=== PATIENT | female | born 1940 | race Caucasian/White ===

== ENCOUNTER 2019-06-15 09:09 | Emergency (ER) | payer MEDICARE, SELFPAY ==
[2019-06-15 09:16] VITALS: BP 182/91; PULSE 73; RESP 18; TEMP 36.6; O2SAT 95; BMI 32.1
--- NOTE | 2019-06-15 09:45 | XRR_ITS ---
PROCEDURE INFORMATION: Exam: XR Cervical Spine, 2 or 3 Views Exam date and time: 06/15/2019 9:46 AM Age: 79 years old Clinical indication: Injury or trauma; Fall; Initial encounter; Blunt trauma; Additional info: Fall neck pain TECHNIQUE: Imaging protocol: XR of the cervical spine, 2 or 3 views. COMPARISON: No relevant prior studies available. FINDINGS: Vertebrae: Alignment is normal. posterior vertebral line and the spinal laminar line normal odontoid process normal no fracture. Degenerative disc disease C4-C5, C5-C6, C6-C7 and C7-T1. Soft tissues: Normal. XR/XR cervical spine 3V* [id number] IMPRESSION: 1. No fracture. 2. Degenerative disc disease C4-C5, C5-C6, C6-C7 and C7-T1.
--- NOTE | 2019-06-15 09:46 | ED_ITS ---
HPI - Head Injury General: Chief complaint: Head Injury Stated complaint: head lac Time Seen by Provider: 06/15/19 09:20 History of Present Illness: HPI Narrative: 79-year-old female presents emergency room after falling. She was at home moving some objects with her she stumbled and fell backwards and hit her head on the edge of a tractor bucket. She has a small hematoma there but no laceration there is a abrasion noted upper part of the occiput just to the left of the midline and is not actively bleeding. She denies any other injury there is no loss of consciousness she has some mild neck discomfort she was immediately ambulatory after she had no vomiting. She has a mild headache. She denies any other recent illness. She is unsure of her last tetanus shot. MD Complaint: head injury Onset (ago): hour(s) Mechanism of Injury: fall Place: home Loss of Consciousness: no Location of injury: occipital Radiation: none Other Injuries: none Associated symptoms: Reports no associated symptoms; Deny nausea or vomiting Review of Systems Const: Denies: fever, chills, body aches, change in appetite, fatigue or malaise ENMT: Denies: throat pain, ear pain, nasal discharge or nasal congestion Card: Denies: chest pain, edema, shortness of breath on exertion or shortness of breath when lying down Resp: Denies: shortness of breath, productive cough or non-productive cough GI: Denies: abdominal pain, nausea, vomiting, vomiting blood, coffee grounds in vomit, diarrhea, constipation, bloating, blood in stool or black tarry stool : Denies: flank pain, difficulty urinating, painful urination, urinary frequency or urinary urgency Skin/Breast: Denies: rash or itching Neuro: Reports: headache (Present after the fall) [facility], [facility] ED PFSH: Social History Smoking and tobacco status: former smoker Physical Exam Const: COMMON NORMALS: no apparent distress GENERAL APPEARANCE: cooperative and comfortable ORIENTATION/CONSCIOUSNESS: Yes awake, Yes oriented to person, Yes oriented to place and Yes oriented to time HENMT: COMMON NORMALS: normocephalic, head/scalp atraumatic, hearing grossly normal bilaterally, external ears normal, EAC's normal, TM's normal bilaterally, nasal mucous membranes and turbinates normal, moist oral mucous membranes and oropharynx normal HEAD & SCALP: normocephalic and atraumatic NOSE: nasal mucous membranes and turbinates normal EXTERNAL EAR: Yes external ears normal EXTERNAL AUDITORY CANAL: EAC's normal TYMPANIC MEMBRANE: TM's normal bila terally OTHER: Scalp hematoma with a small overlying abrasion no active bleeding Eye: COMMON NORMALS: PERRL, EOMs intact bilaterally, conjunctivae normal and no scleral icterus CONJUNCTIVA: Yes conjunctivae normal PUPIL: Yes PERRL Neck/C-Spine: COMMON NORMALS: full ROM, no lymphadenopathy, supple and no JVD Lymph: LYMPHATIC: no lymphadenopathy noted and no lymphedema noted Resp: COMMON NORMALS: normal respiratory effort, no retractions, no use of accessory muscles and clear to auscultation bilaterally AUSCULTATION: clear to auscultation bilaterally Cardio: COMMON NORMALS: no JVD, regular rate, regular rhythm and no murmurs RATE: regular rate RHYTHM: regular rhythm GI: COMMON NORMALS: soft to palpation and no hepatosplenomegaly AUSCULTATION: Yes normoactive bowel sounds PALPATION: Yes soft, No tender, No guarding and Yes no hepatosplenomegaly Extremity: COMMON NORMALS: normal to inspection, normal capillary refill, no clubbing, cyanosis or edema, no calf tenderness and no pedal edema Neuro: SENSORIUM/ORIENTATION: Yes oriented to person, Yes oriented to place and Yes oriented to time Skin: COMMON NORMALS: no rashes or lesions noted GENERAL SKIN EXAM: no rashes or lesions noted Course Vital Signs: Vital signs: Vital Signs Temperature 97.8 F 06/15/19 09:16 Pulse Rate 71 06/15/19 12:02 Respiratory Rate 18 06/15/19 12:02 Blood Pressure 178/89 06/15/19 12:02 Pulse Oximetry 95 06/15/19 12:02 MDM - Head Injury MDM Narrative: Medical decision making narrative: Alert and oriented with no evidence of any deficits initially a plain film done which is question of some slight malalignment on the C-spine it was difficult to tell because of arthritic changes CT of the cervical spine was negative for fracture. She has an abrasion on the upper occiput but does not require any sutures wound care instructions given. Discussed that she is likely have very sore neck the next few days can use anti-inflammatory as needed follow-up as needed return if has worsening problems. Discharge Plan Discharge Patient Disposition: Home, Self-Care Clinical Impression: Closed head injury, Cervicalgia Condition: Stable Prescriptions: New diclofenac sodium 75 mg tablet,delayed release (DR/EC) 75 mg PO Q12H PRN (Reason: pain) Qty: 20 RF: 0 No Action clonidine HCl 0.1 mg tablet 0.1 mg PO BID RF: 0 atorvastatin 10 mg tablet 10 mg PO BEDTIME RF: 0 metoprolol succinate 50 mg tablet extended release 24 hr 50 mg PO DAILY RF: 0 amlodipine 10 mg tablet 10 mg PO DAILY RF: 0 gabapentin 300 mg capsule See Rx Instructions .ROUTE .COMPLEX RF: 0 diazepam 5 mg tablet 2.5 mg PO BID PRN (Reason: unknown) RF: 0 Advair Diskus See Rx Instructions .ROUTE .COMPLEX RF: 0 Aleve 220 mg Tablet 220 mg PO BID RF: 0 PreserVision AREDS-2 [id number] cy-[id number]-[id number]-mg Capsule 1 tab PO BID RF: 0 Move Easy For Joints 1 tab PO DAILY RF: 0 Discharge Orders: Discharge Order (Routine); Ordered 06/15/19 Ordered By: Earl Flower Discharge Diet: Usual diet Discharge Activity: Increase activity as tolerated Activity Restrictions/Additional Instructions: Follow-up with your primary care provider early next week. Discharge Date/Time: 06/15/19 12:06 Coding Level of Care Code ED Bonding Machine Setter for Gilberto Fwaugustin Exam Comprehensive
[2019-06-15] MEDS: tetanus-dipt-pertussis 0.5 mL SDV IM (09:54)
--- NOTE | 2019-06-15 10:22 | CTR_ITS ---
PROCEDURE INFORMATION: Exam: CT Cervical Spine Without Contrast Exam date and time: 06/15/2019 10:30 AM Age: 79 years old Clinical indication: Pain and injury or trauma; Initial encounter; Blunt trauma; Patient HX: C/O neck pain after backwards fall TECHNIQUE: Imaging protocol: Computed tomography images of the cervical spine without contrast. Total DLP: 391.14 mGy-cm Radiation optimization: All CT scans at this facility use at least one of these dose optimization techniques: automated exposure control; mA and/or kV adjustment per patient size (includes targeted exams where dose is matched to clinical indication); or iterative reconstruction. COMPARISON: CR (NECK, ) 06/15/2019 10:00 AM FINDINGS: Vertebrae: alignment is normal. posterior vertebral line and the spinal laminar line normal odontoid process normal no fracture Discs/Spinal canal/Neural foramina: Severe degenerative disc disease. Soft tissues: Unremarkable. Thyroid: Large nodule right lobe of the thyroid of approximately 2.7 cm Lungs: Apical fibrosis bilaterally CT/CT cervical spin wo con* [id number] IMPRESSION: No fracture. COMMENTS: Consistent with the [employer]'s Incidental Findings Committee white paper (J Am Ines Radiol 2015): In patients aged 35 years and older with an incidental thyroid nodule equal to or greater than 1.[address], MRI or extrathyroidal US, further evaluation with dedicated thyroid US is recommended for patients with normal life expectancy and without comorbidities. For smaller nodules without suspicious features, no further evaluation or follow up is recommended. Radiation Dose CTDIVOL = (mGy): DLP = 391.14 (mGy-cm)
--- NOTE | 2019-06-15 11:37 | PC.NURSE ---
patient resting quietly waiting for ct to be read
[2019-06-15 12:02] VITALS: BP 178/89; PULSE 71; RESP 18; O2SAT 95
== END 2019-06-15 12:06 | disposition home or self-care (01) ==
PROVIDERS: Emergency Provider Family Medicine
DX: S09.8XXA Other specified injuries of head, initial encounter (principal); M54.2 Cervicalgia; Z87.891 Personal history of nicotine dependence; W01.0XXA Fall on same level from slipping, tripping and stumbling without subsequent striking against object, initial encounter; Z23 Encounter for immunization
CPT/HCPCS: 12345; 72040; 72125; 90471; 90715; 99281; 99283

== ENCOUNTER 2020-12-01 12:09 | Emergency (ER) | payer MEDICARE, BC, SELFPAY ==
[2020-12-01 12:31] VITALS: BP 150/86; PULSE 65; RESP 16; TEMP 36.7; O2SAT 16
--- NOTE | 2020-12-01 12:36 | CT_ITS ---
WS: [id number] CT CERVICAL SPINE HISTORY: fall/pain TECHNIQUE: Contiguous 2.5 mm axial imaging performed through the entire cervical spine. Sagittal and coronal reformats also performed. All CT scans at [facility] use at least one of these dose o ptimization techniques: automated exposure control; mA and/or kV adjustment per patient size (include s targeted exams where dose is matched to clinical indication); or iterative reconstruction. DLP: 484.11 mGy.cm COMPARISON: 06/15/2019 Posterior cervical alignment is normal. Disc space narrowing and desiccation is moderate at C4-5, C5- 6 and C6-7. Facet joints are narrowed throughout the cervical spine. Lateral masses of C1 and C2 are aligned. Odontoid is intact. Craniocervical junction is normal. RIGHT apical fibrosis or mass measures 2.7 x 1.1 cm. RIGHT measures 2.[address]/CT cervical spin wo con* [id number] IMPRESSION: 1. No acute cervical spine fracture. 2. Fibrosis versus early neoplasm at the RIGHT lung apex. Recommend follow-up chest CT in 2-3 months to confirm stability. 3. RIGHT thyroid nodule similar to the prior CT from 06/15/2019.
--- NOTE | 2020-12-01 12:36 | CT_ITS ---
WS: [id number] CT HEAD NONCONTRAST HISTORY: trauma/fall/laceration TECHNIQUE: Contiguous axial imaging performed through the brain in 2.5 mm imaging. Bone and soft tiss ue windows. Sagittal and coronal reformats reviewed. All CT scans at [facility] use at least one of these dose optimization techniques: automated exposure control; mA and/or kV adjustment per pa tient size (includes targeted exams where dose is matched to clinical indication); or iterative recon struction. DLP: 820.93 mGy.cm COMPARISON: None available. 4 mm area of increased density along the LEFT parafalcine above the lateral ventricles. No associated midline shift. No mass effect no additional areas of increased density within the brain. Mild atrophy and mild chronic microvascular ischemic disease. Ventricles: Normal size with no hydrocephalus. Paranasal sinuses: As visualized are clear. Mastoid air cells: Well pneumatized. Calvarium and scalp: No fracture. Small contusion LEFT frontal vertex. CT/CT head wo con* [id number] IMPRESSION: 1. 4 mm hyperdense focus LEFT parafalcine supraventricular region. Very suspic ious for tiny acute focus of subdural hemorrhage. 2. Mild atrophy and mild chronic ischemic disease. 3. No fracture. Notified LAUREN Khan at 12/01/2020 2:13 PM.
--- NOTE | 2020-12-01 14:51 | ED_ITS ---
HPI - Fall General: Chief Complaint: Fall Stated Complaint: Laceration to Head from fall Time Seen by Provider: 12/01/20 14:25 History of Present Illness: HPI Narrative: 72-year-old female presents to the emergency room with complaint of a laceration to her head from a fall. She stumbled at home fell down some stairs and hit the crown of her head against a air compressor. She had no loss of consciousness. CTA head and neck were ordered by PA while in the waiting room. Head CT shows a small subdural hematoma CT of the neck was negative. Patient denies any nausea vomiting or vision changes. She does have a bit of a headache. Her tetanus is up-to-date. MD complaint: fall Onset (ago): minute(s) Fall from: standing Fall witnessed: no Place fall occurred: home Loss of consciousness: None Prolonged down time: no Symptoms prior to fall: none Context: tripped/slipped Location of injury: head and neck Associated symptoms-after fall: Denies abdominal pain, chest pain, confusion, difficulty walking, headache(s), hematuria, lightheadedness, neck pain, numbness, short of breath, vertigo or weakness Review of Systems Const: Denies: fever(s), chills, body aches, change in appetite, fatigue or malaise ENMT: Denies: throat pain, ear or mastoid pain, nasal discharge or nasal congestion Card: Denies: chest pain or lightheadedness Resp: Denies: dyspnea, productive cough or non-productive cough GI: Denies: abdominal pain : Denies: hematuria Musc: Denies: neck pain Skin/Breast: Denies: rash or pruritus Neuro: Denies: headache(s), difficulty walking, vertigo or confusion PFS ED PFSH: Social History Smoking and tobacco status: former smoker Physical Exam Const: COMMON NORMALS: no acute distress GENERAL APPEARANCE: cooperative and comfortable ORIENTATION/CONSCIOUSNESS: Yes awake, Yes oriented to person, Yes oriented to place and Yes oriented to time HENMT: COMMON NORMALS: normocephalic, hearing grossly normal bilaterally, external ears normal, EAC's normal, TM's normal bilaterally, Normal nasal mucous membranes and turbinates present and moist oral mucous membranes HEAD & SCALP: normocephalic NOSE: Normal nasal mucous membranes and turbinates present EXTERNAL EAR: Yes external ears normal EXTERNAL AUDITORY CANAL: EAC's normal TYMPANIC MEMBRANE: TM's normal bilaterally OTHER: 2 cm laceration on the crown of the scalp overlying the sagittal suture wound was cleansed and approximated with 2 kimmy without any difficulty. Eye: COMMON NORMALS: Equal, round and reactive pupils present, EOMs intact bilaterally, conjunctivae normal and no scleral icterus CONJUNCTIVA: Yes conjunctivae normal PUPIL: Yes Equal, round and reactive pupils present Neck/C-Spine: COMMON NORMALS: full ROM, no lymphadenopathy and supple Resp: COMMON NORMALS: normal respiratory effort, No retractions, No use of accessory muscles and clear to auscultation bilaterally AUSCULTATION: clear to auscultation bilaterally Cardio: COMMON NORMALS: regular rate, regular rhythm and No murmurs present (Cardio) RATE: regular rate RHYTHM: regular rhythm GI: COMMON NORMALS: Soft to palpation and No hepatosplenomegaly present AUSCULTATION: Yes normoactive bowel sounds PALPATION: Yes Soft to palpation, No Tenderness to palpation present (GI), No Guarding due to palpation present (GI) and Yes No hepatosplenomegaly present Extremity: COMMON NORMALS: normal to inspection, capillary refill normal, no clubbing, cyanosis or edema, no calf tenderness and no pedal edema Neuro: SENSORIUM/ORIENTATION: Yes oriented to person, Yes oriented to place and Yes oriented to time Skin: COMMON NORMALS: no rashes or lesions noted GENERAL SKIN EXAM: no rashes or lesions noted Procedures Laceration Laceration 1: Site: scalp Size (cm): 2 Description: linear Depth: simple, single layer Skin layer closed with: other (2 kimmy) Course Vital Signs: Vital signs: Vital Signs Temperature 98.0 F 12/01/20 12:31 Pulse Rate 70 12/01/20 17:30 Respiratory Rate 16 12/01/20 12:31 Blood Pressure 165/80 12/01/20 17:30 Pulse Oximetry 96 12/01/20 17:30 MDM - Fall MDM Narrative: Medical decision making narrative: CT shows subdural hematoma. Small at 4 mm. She is clinically stable at this point. Laceration has been repaired will transfer to trauma center since we do not have available neurosurgery. Lab Data: Labs: Lab Results 12/01/20 12/01/20 12/01/20 14:53 14:53 14:53 WBC 8.3 10^3/uL 10^3/ uL (4.0-10.0) RBC 4.53 10^6/uL 10^6 /uL (4.1-5.3) Hgb 13.2 g/dL g/dL (11.5-15.3) Hct 41.6 % % (37.0-47.0) MCV 91.8 fl fl (81-99) MCH 29.1 pg pg (28.0-34.0) MCHC 31.7 g/dL g/dL (30.0-36.0) RDW 15.1 % % (12.1-15.1) Plt Count 271 10^3/cmm 10^3 /cmm (130-400) MPV 10.0 fL fL (7.4-10.4) Neut % (Auto) 62.3 % % Lymph % (Auto) 22.7 % % [place] % (Auto) 8.1 % % Eos % (Auto) 5.2 % % Baso % (Auto) 1.0 % % Neut # (Auto) 5.19 10^3/uL 10^3 /uL (1.8-7.7) Lymph # (Auto) 1.9 10^3/uL 10^3/ uL (0.8-4.8) [place] # (Auto) 0.7 10^3/uL 10^3/ uL (0.2-0.9) Eos # (Auto) 0.4 10^3/uL 10^3/ uL (0.0-0.8) Baso # (Auto) 0.1 10^3/uL 10^3/ uL (0.0-0.1) Nucleated RBC % (a uto) 0 % % Nucleated RBCs # 0.0 /100WBC /100W BC PT 13.30 SECONDS SEC ONDS (12.1-14.9) INR 0.98 (0.8-1.2) APTT 31.9 SECONDS SECO NDS (23.9-36.7) Sodium 142 mmol/L mmol/L (136-145) Potassium 4.4 mmol/L mmol/L (3.5-5.1) Chloride 105 mmol/L mmol/L (98-107) Carbon Dioxide 26 mmol/L mmol/L (22-29) Anion Gap 15.4 (5-19) BUN 24 mg/dL H mg/dL (8-23) Creatinine 1.2 mg/dL H mg/dL (0.5-0.9) GFR Calculation Not Reportable Glucose 97 mg/dL mg/dL (65-115) Calculated Osmolal ity 298 mOsm/kg H mOs m/kg (285-295) Calcium 9.5 mg/dL mg/dL (8.5-10.5) Total Bilirubin 0.5 mg/dL mg/dL (0.15-1.2) AST 18 U/L U/L (0-32) ALT 15 U/L U/L (0-33) Alkaline Phosphata se 55 IU/L IU/L (35-105) Total Protein 7.0 g/dL g/dL (6.6-8.7) Albumin 4.2 g/dL g/dL (3.5-5.2) Globulin 2.8 g/dL g/dL (1.3-4.6) Discharge Plan Discharge Patient Disposition: Transfer to ED Clinical Impression: Acute subdural hematoma, Laceration of scalp Condition: Stable Prescriptions: No Action clonidine HCl 0.1 mg tablet 0.1 mg PO BID RF: 0 atorvastatin 10 mg tablet 10 mg PO BEDTIME RF: 0 metoprolol succinate 50 mg tablet extended release 24 hr 50 mg PO DAILY RF: 0 amlodipine 10 mg tablet 10 mg PO DAILY RF: 0 gabapentin 300 mg capsule See Rx Instructions .ROUTE .COMPLEX RF: 0 diazepam 5 mg tablet 2.5 mg PO BID PRN (Reason: unknown) RF: 0 Advair Diskus See Rx Instructions .ROUTE .COMPLEX RF: 0 Aleve 220 mg Tablet 220 mg PO BID RF: 0 PreserVision AREDS-2 [id number]-mg Capsule 1 tab PO BID RF: 0 Move Easy For Joints 1 tab PO DAILY RF: 0 diclofenac sodium 75 mg tablet,delayed release (DR/EC) 75 mg PO Q12H PRN (Reason: pain) Qty: 20 RF: 0 Coding Level of Care Code ED Distribution Supervisor for Gilberto Fwd Exam Comprehensive
[2020-12-01 15:01] LABS: Basophils # 0.1 10^3/uL (0.0-0.1); Eosinophils # 0.4 10^3/uL (0.0-0.8); Eosinophils % 5.2 %; Hematocrit 41.6 % (37.0-47.0); Hemoglobin 13.2 g/dL (11.5-15.3); Lymphocytes # 1.9 10^3/uL (0.8-4.8); Lymphocytes % 22.7 %; Mean Corpuscular HGB Conc 31.7 g/dL (30.0-36.0); Mean Corpuscular Hemoglobin 29.1 pg (28.0-34.0); Mean Corpuscular Volume 91.8 fl (81-99); Monocytes # 0.7 10^3/uL (0.2-0.9); Monocytes % 8.1 %; Neutrophils # 5.19 10^3/uL (1.8-7.7); Neutrophils % 62.3 %; Nucleated Red Blood Cells % 0 %; Platelet Count 271 10^3/cmm (130-400); Red Blood Count 4.53 10^6/uL (4.1-5.3); Red Cell Distribution Width 15.1 % (12.1-15.1); White Blood Count 8.3 10^3/uL (4.0-10.0)
[2020-12-01 15:05] VITALS: PULSE 71; O2SAT 97
[2020-12-01 15:36] LABS: INR 0.98 (0.8-1.2)
[2020-12-01 15:37] LABS: Partial Thromboplastin Time 31.9 SECONDS (23.9-36.7)
[2020-12-01 15:44] LABS: Alanine Aminotransferase 15 U/L (0-33); Albumin Level 4.2 g/dL (3.5-5.2); Alkaline Phosphatase 55 IU/L (35-105); Anion Gap 15.4 (5-19); Aspartate Amino Transferase 18 U/L (0-32); Blood Urea Nitrogen 24 mg/dL (8-23); Calcium 9.5 mg/dL (8.5-10.5); Carbon Dioxide 26 mmol/L (22-29); Chloride 105 mmol/L (98-107); Creatinine Clr Calc Pharmacy 37.3265; Globulin 2.8 g/dL (1.3-4.6); Glucose 97 mg/dL (65-115); Osmolality Calculated 298 mOsm/kg (285-295); Potassium 4.4 mmol/L (3.5-5.1); Sodium 142 mmol/L (136-145); Total Bilirubin 0.5 mg/dL (0.15-1.2)
[2020-12-01 17:30] VITALS: BP 165/80; PULSE 70; O2SAT 96
== END 2020-12-01 18:04 ==
PROVIDERS: Emergency Provider Family Medicine
DX: S01.01XA Laceration without foreign body of scalp, initial encounter (principal); S06.5X9A Traumatic subdural hemorrhage with loss of consciousness of unspecified duration, initial encounter; Z87.891 Personal history of nicotine dependence; W10.8XXA Fall (on) (from) other stairs and steps, initial encounter
CPT/HCPCS: 12001; 70450; 72125; 80053; 85025; 85610; 85730; 99285

== ENCOUNTER 2021-05-27 12:10 | Outpatient (CLI) | payer MEDICARE, SELFPAY ==
--- NOTE | 2021-05-27 12:30 | CT_ITS ---
WS: [id number] CT CHEST WITHOUT INTRAVENOUS CONTRAST HISTORY: incidental pulmonary TECHNIQUE: Contiguous 5 mm axial imaging performed on the thorax. Coronal and sagittal reformats are submitted. All CT scans at [facility] use at least one of these dose optimization techniques: automated exposure control; mA and/or kV adjustment per patient size (includes targeted exams where dose is matched to clinical indication); or iterative reconstruction. CONTRAST: None. Attempted injection was unsuccessful due to IV infiltration. DLP: 684.90 mGy.cm COMPARISON: CT 12/01/2020 Lungs and central airway: Hyperinflated lungs from emphysema. The asymmetry and increased density at the RIGHT apex is asymmetric to the LEFT. There is a nodular component along with a linear area of sc arring and adjacent groundglass attenuation. As compared to the most recent examination of 12/01/2020 no interval change. This area of asymmetry extends over a length of 4.0 cm. Focal nodule towards the superior asymmetry measures 1.0 cm. There are additional scattered areas of subcentimeter nodules an d groundglass attenuation and slight spiculations throughout both lungs. These groundglass attenuatio n scattered predominantly in the upper lung salceod bilaterally. Groundglass attenuation measures 1.8 cm in superior segment LEFT lower lobe. Pleura: Normal. No pleural effusion. Heart and pericardium: Moderately enlarged heart. No effusion. Mediastinum and elis: No mediastinum or hilar adenopathy. Vessels: Mild atherosclerosis aorta and ectasia. Pulmonary artery size is slightly enlarged. Chest wall and lower neck: Again noted is a 2.6 x 2.4 cm RIGHT thyroid nodule. Upper abdomen: Postsurgical changes at the GE junction. There are numerous surgical clips in the LEFT upper abdomen adjacent spleen. Along the inferior RIGHT lobe of the liver incompletely included on t his examination is a 1.8 cm area of decreased attenuation. Osseous structures: No destructive process. CT/CT chest wo con [id number] IMPRESSION: 1. No interval change in the area of pulmonary fibrosis with nodule and ground glass attenuation at the RIGHT apex. These findings are still concerning for po ssible neoplasm. There are additional scattered, subcentimeter areas of groundg lass attenuation with spiculation predominantly in the upper lung salcedo. Also an 1.8 cm groundglass nodule superior segment LEFT lower lobe. These may repres ent very early low-grade adenocarcinomas. Continued CT follow-up is recommended every 3-4 months. PET/CT imaging may also be helpful. 2. There is an additional incompletely visualized 18 mm area of low attenuatio n in the RIGHT lobe of the liver. Recommend follow-up ultrasound evaluation to exclude a neoplasm or metastatic disease. 3. Chronic emphysema. 4. Stable RIGHT thyroid nodule.
[2021-05-27 13:15] LABS: Blood Urea Nitrogen 21 mg/dL (8-23)
[2021-05-27] MEDS: iodixanol 320 mg/mL 100mL Btl IV (13:16)
== END 2021-05-27 12:11 | disposition home or self-care (01) ==
PROVIDERS: Radiology Neuroradiology; PCP Internal Medicine; Visit Provider Internal Medicine
DX: R91.1 Solitary pulmonary nodule (principal); J43.9 Emphysema, unspecified; E04.1 Nontoxic single thyroid nodule
CPT/HCPCS: 71250; 82565; 84520

== ENCOUNTER → 2021-07-12 09:36 | Outpatient (BNVA) | payer MEDICARE, SELFPAY | PROVIDERS: PCP Internal Medicine; Visit Provider Internal Medicine Critical Care Medicine | DX: R91.1 Solitary pulmonary nodule (principal); J45.909 Unspecified asthma, uncomplicated; Z87.891 Personal history of nicotine dependence; I10 Essential (primary) hypertension | CPT/HCPCS: 99204 ==

== ENCOUNTER 2021-08-02 10:12 | Outpatient (CLI) | payer MEDICARE, SELFPAY ==
--- NOTE | 2021-08-02 10:19 | MM_ITS ---
WS: [id number] BILATERAL SCREENING DIGITAL BREAST TOMOSYNTHESIS MAMMOGRAM WITH CAD HISTORY: SCREEN COMPARISON: 07/16/2020, 07/16/2019 Bilateral CC and MLO views with tomosynthesis and synthetic mammography submitted. Computer aided det ection analyzed. Breast composition: There are scattered areas of fibroglandular density. No suspicious masses, microc alcifications or architectural distortion. MM/[place] [id number] IMPRESSION: BI-RADS: 1-Negative FOLLOW UP: 1 Year Follow-up
== END 2021-08-02 10:13 | disposition home or self-care (01) ==
LOC: RAD 10:14
PROVIDERS: PCP Internal Medicine; Visit Provider Internal Medicine
DX: Z12.31 Encounter for screening mammogram for malignant neoplasm of breast (principal)
CPT/HCPCS: 77063; 77067

== ENCOUNTER 2021-08-11 09:22 | Outpatient (CLI) | payer MEDICARE, SELFPAY ==
--- NOTE | 2021-08-11 13:39 | PFTS_ITS ---
Date of Study:08/11/21 Date of Dictation: MECHANICS: Forced vital capacity (FVC) is normal. Forced expiratory volume in one second (FEV1) is normal. FEV1/FVC is reduced. FLOW VOLUME LOOP: Reduced flow at lower lung volumes with scooping. LUNG VOLUMES: Total lung capacity (TLC) is normal. Residual volume (RV) is normal. DIFFUSING CAPACITY FOR CARBON MONOXIDE: Normal. INTERPRETATION: Postbronchodilator spirometry is consistent with mild airflow obstruction. There is a significant postbronchodilator response. Lung volumes are normal. Gas exchange (DLCO) is normal. MTDD
== END 2021-08-11 09:23 | disposition home or self-care (01) ==
PROVIDERS: PCP Internal Medicine; Visit Provider Internal Medicine Critical Care Medicine
DX: R91.1 Solitary pulmonary nodule (principal); F17.210 Nicotine dependence, cigarettes, uncomplicated
CPT/HCPCS: 94060; 94726; 94729; J7611

== ENCOUNTER 2021-10-11 06:52 | Day surgery (SDC) | payer MEDICARE, SELFPAY ==
[2021-10-08 09:17] VITALS: BMI 29.2
[2021-10-11 07:25] VITALS: BP 143/78; PULSE 53; RESP 18; TEMP 36.3; O2SAT 96
[2021-10-11] MEDS: sodium chloride 0.9% 1,000 ML 30 ML IV (07:35)
--- NOTE | 2021-10-11 07:43 | ANES.PREANE2 ---
Pre-Anesthetic Assessment Height/Weight: Height 1.6 m Weight 74.843 kg Temp Pulse Resp BP Pulse Ox O2 Del Method 97.3 F L 53 L 18 143/78 96 10/11/21 07:25 10/11/21 07:25 10/11/21 07:25 10/11/21 07:25 10/11/21 07:25 10/11/21 07:25 Preop Diagnosis: dysphagia Operation Date: 10/11/21 08:30 Proposed Procedures p EGD 81034,R13.10(Not Applicable) - Presley Da Silva MD Familial anesthetic complications: Daughter had fever after T & A as a child, no hx of allergy to anesthetic in family, daughter has had anesthesia since w/o complication other than PONV Was Beta Ron taken within 24 hours: N/A Was Clonidine taken within 24 hours: N/A Last intake: Intake Last Liquid Date 10/10/21 Last Liquid Time 23:55 Last Solid Date 10/10/21 Last Solid Time 19:00 Social No alcohol and No tobacco Exam alert, oriented x 3, clear to auscultation bilaterally and regular rate & rhythm Airway Submandibular: within normal limits Cervical ROM: within normal limits Mallampati: Class II Dentition: chipped Comments: Comments: Missing front lower teeth History/ROS No significant complaints Pulmonary Asthma (Well controlled for several years, has been hospitalized for asthma exacerbation in the past ) CV/HEM Hypertension and None reported None reported Hepatic None reported GI Dysphagia Metabolic None reported Musc/skel None reported Neuropsych None reported Anesthetic Plan ASA status: 2 Anesthesia: Anesthesia Evaluation, General and MAC Other: I discussed with the patient risks, goals, and benefits of MAC and general anesthesia. We discussed spectrum of MAC anesthesia including conversion to general as well as possibility of recall of intraoperative stimuli including discomfort/pain. Patient agrees to proceed with MAC. Risk of > 500 ml blood loss (7ml/kg in children): No Medications/Allergies Home Medications Medication Instructions Recorded Confirmed Last Taken Type Move Easy For Joints 1 tab PO DAILY 06/15/19 10/11/21 10/10/21 History naproxen sodium 220 mg tablet 220 mg PO BID 06/15/19 10/11/21 10/10/21 History (Aleve) vit C 250 mg-vit E 90 mg-zinc 40 1 tab PO BID 06/15/19 10/11/21 10/10/21 History mg-copper 1 sl-bhssio-qiszro capsule (PreserVision AREDS-2) amlodipine 10 mg tablet 10 mg PO DAILY #30 tabs 05/20/21 10/11/21 10/11/21 Rx metoprolol succinate 50 mg 50 mg PO DAILY #30 tabs 06/15/21 10/11/21 10/10/21 Rx tablet,extended release 24 hr montelukast 10 mg tablet 10 mg PO DAILY 30 days #30 tabs 07/12/21 10/11/21 10/10/21 Rx (Singulair) gabapentin 300 mg capsule 300 mg .Route .COMPLEX #240 caps 08/31/21 10/11/21 10/11/21 Rx diazepam 5 mg tablet 2.5 mg PO BID PRN unknown #30 tabs 09/30/21 10/11/21 10/10/21 Rx clonidine HCl 0.1 mg tablet 0.1 mg PO BID #60 tabs 10/01/21 10/11/21 10/11/21 Rx Allergies Allergy/AdvReac Type Severity Reaction Status Date / Time iodine Allergy ADR-Abdominal Verified 10/11/21 07:16 Pain lisinopril Allergy ALGY-Swell Verified 10/11/21 07:16 Lip/Tongue/Throat seafood Allergy ALGY-Swell Uncoded 10/11/21 07:16 Lip/Tongue/Throat Current Medications Generic Name Dose Route Start Last Admin Trade Name Freq PRN Reason Stop Dose Admin Sodium Chloride 1,000 mls @ 30 mls/hr 10/11/21 07:00 10/11/21 07:35 Sodium Chloride 0.9% IV 10/12/21 06:59 30 mls/hr .Q24H DEJON Administration PFSH Anesthesia Medical History Asthma Basal cell carcinoma Bunion of right foot H/O fall 12/01/2020 HTN (hypertension) with goal to be determined Malignant neoplasm Surgical History History of left knee replacement Social History Smoking and tobacco status: former smoker Quit status (tobacco): has quit using tobacco Year quit tobacco: 1979 Former quit date comment: 1.5 ppd X 18 years Data Anesthesia Cardiac Studies: No Data to Display
--- NOTE | 2021-10-11 08:13 | P.HP_ITS ---
Same Day Surgery H&P Indication for Procedure/HPI DATE OF PROCEDURE: October 11, 2021 CHIEF COMPLAINT/INDICATIONFOR SURGICAL PROCEDURE: Dysphagia PREOP DIAGNOSIS: dysphagia PLANNED PROCEDURE: Operation Date: 10/11/21 08:30 Proposed Procedures p EGD 40894,R13.10(Not Applicable) - Presley Da Silva MD Medications/Allergies* Home Medications Medication Instructions Recorded Confirmed Type Move Easy For Joints 1 tab PO DAILY 06/15/19 10/11/21 History naproxen sodium 220 mg tablet 220 mg PO BID 06/15/19 10/11/21 History (Aleve) vit C 250 mg-vit E 90 mg-zinc 40 1 tab PO BID 06/15/19 10/11/21 History mg-copper 1 br-pncebi-yjrnwf capsule (PreserVision AREDS-2) Allergies/Adverse Reactions Allergy/AdvReac Type Severity Reaction Status Date / Time iodine Allergy ADR-Abdominal Verified 10/11/21 07:16 Pain lisinopril Allergy ALGY-Swell Verified 10/11/21 07:16 Lip/Tongue/Throat seafood Allergy ALGY-Swell Uncoded 10/11/21 07:16 Lip/Tongue/Throat Current Medications: Generic Name Dose Route Start Last Admin Trade Name Freq PRN Reason Stop Dose Admin Sodium Chloride 1,000 mls @ 30 mls/hr 10/11/21 07:00 10/11/21 07:35 Sodium Chloride 0.9% IV 10/12/21 06:59 30 mls/hr .Q24H DEJON Administration Pertinent History/Comorbid Conditions* Medical History (Updated 10/05/21 @ 13:43 by Presley Da Silva MD) Asthma Basal cell carcinoma Bunion of right foot H/O fall 12/01/2020 HTN (hypertension) with goal to be determined Malignant neoplasm Surgical History (Updated 03/22/21 @ 10:44 by TABITHA Francis) History of left knee replacement Social History Smoking and tobacco status: former smoker Quit status (tobacco): has quit using tobacco Year quit tobacco: 1979 Former quit date comment: 1.5 ppd X 18 years Pertinent Exam Findings alert, oriented x 3, clear to auscultation bilaterally, regular rate & rhythm, operative site marked and procedure specific exam findings Recommendations Surgery/Procedure today Coding Level of Care Code Acute Rubber Calender Helper for Chg Nicole
[2021-10-11 09:05] VITALS: BP 129/62; PULSE 49; RESP 16; TEMP 36.1; O2SAT 95
[2021-10-11 09:19] VITALS: BP 126/61; PULSE 50; RESP 18; O2SAT 92
--- NOTE | 2021-10-11 12:09 | ANE.PACU2 ---
Inpatient post-anesthesia follow up: Airway intact: Yes Vital signs: Temperature 97.0 F Pulse Rate 50 Respiratory Rate 18 Blood Pressure 126/61 Pulse Oximetry 92 Oxygen Delivery Me thod Room Air Oxygen Flow Rate Fraction of Inspir ed Oxygen Hydration adequate: Yes Nausea and vomiting: No Pain level: 1 Mental status: Baseline
[2021-10-12 09:42] LABS: H. Pylori / CLO Test Negative
== END 2021-10-11 09:57 | disposition home or self-care (01) ==
PROVIDERS: PCP Internal Medicine; Visit Provider Internal Medicine
PROC: 0DJ08ZZ Inspection of Upper Intestinal Tract, Via Natural or Artificial Opening Endoscopic (ICD-10-PCS; CPT 43235; principal; 2021-10-11 08:30)
DX: R13.10 Dysphagia, unspecified (principal); K21.00 Gastro-esophageal reflux disease with esophagitis, without bleeding; K25.7 Chronic gastric ulcer without hemorrhage or perforation; J45.909 Unspecified asthma, uncomplicated; I10 Essential (primary) hypertension; Z87.891 Personal history of nicotine dependence
CPT/HCPCS: 43239; 87077; J2704; J7030

== ENCOUNTER 2022-01-06 06:10 | Outpatient (CLI) | payer MEDICARE, SELFPAY ==
--- NOTE | 2022-01-06 06:30 | CT_ITS ---
WS: [id number] CT HEAD TECHNIQUE: Noncontrast CT of the head obtained from the skullbase to the vertex. CLINICAL INFORMATION: Headache after fall. COMPARISON: CT 12/10 DLP: 948.[address] scans at [facility] use at least one of these dose optimization techniques: automated e xposure control; mA and/or kV adjustment per patient size (includes targeted exams where dose is matc hed to clinical indication); or iterative reconstruction. FINDINGS: No evidence of intracranial hemorrhage or mass effect. Ventricular system and basal cisterns are waite nt. Moderate small vessel changes with moderate parenchymal volume loss. No extra-axial fluid collect ions. No evidence of mass or mass effect. Previously described 4 mm hyperdense focus along the LEFT falx is unchanged since 2020 likely a promi nent vein and/or calcification. Paranasal sinuses and mastoid air cells are well aerated. .Normal visualized soft tissues. CT/CT head wo con* [id number] IMPRESSION: 1. No evidence of intracranial hemorrhage or mass effect. 2. Moderate small vessel changes with moderate parenchymal volume loss. 3. No significant changes since 2020 4. No acute intracranial findings.
== END 2022-01-06 06:11 | disposition home or self-care (01) ==
LOC: RAD 06:13
PROVIDERS: PCP Internal Medicine; Visit Provider Internal Medicine
DX: G44.309 Post-traumatic headache, unspecified, not intractable (principal)
CPT/HCPCS: 70450

== ENCOUNTER → 2022-05-10 15:28 | Outpatient (BNVA) | payer MEDICARE, SELFPAY | PROVIDERS: PCP Internal Medicine; Referring Provider Registered Nurse; Visit Provider Orthopaedic Surgery | DX: M48.061 Spinal stenosis, lumbar region without neurogenic claudication (principal); M43.16 Spondylolisthesis, lumbar region | CPT/HCPCS: 72110; 99204 ==

== ENCOUNTER 2022-06-03 11:03 | Outpatient (CLI) | payer MEDICARE, SELFPAY ==
--- NOTE | 2022-06-03 | MR_ITS ---
WS: [id number] MRI LUMBAR SPINE NONCONTRAST HISTORY: RIGHT leg sciatica. Low back pain is chronic. COMPARISON: Radiograph 05/10/2022 TECHNIQUE: Sagittal and axial multisequence imaging is submitted. RIGHT curvature thoracic spine. Mild LEFT curvature lumbar spine. Degenerative disc disease and spond ylitic changes throughout the cervical and thoracic spines. L4 anterolisthesis by 3 mm. No fractures. Mild increase in the lumbar lordosis. Mild diffuse disc space narrowing and desiccation. Conus terminates normally at L1-2 disc level. L1-L2: Mild annular disc bulging. Mild LEFT foraminal stenosis. No central stenosis. L2-L3: Moderate annular disc bulge with mild foraminal narrowing. Mild fluid in the facet joints. L3-L4: Moderate facet joint arthritis with annular disc bulging. Mild RIGHT foraminal narrowing. L4-L5: Mild diffuse annular disc bulging. Moderate facet and ligamentum flavum hypertrophy. Fluid in the facet joints with mild widening. Encroachment upon the subarticular recesses greater involvement on the RIGHT traversing L5 nerve root. Mild RIGHT foraminal stenosis. L5-S1: Central disc protrusion contacts but does not displace the S1 nerve roots bilaterally. Very mi ld foraminal narrowing. Fluid in the facet joints bilaterally. There is a lobulated mildly septated cystic mass posterior to the L5-S1 vertebral bodies. Mass measur es 2.1 x 1.4 cm and is centered in the central canal. There is mild displacement of the nerve roots t owards the periphery. There is associated facet joint arthritis. 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 MR/MR lumbar spine wo con* [id number] IMPRESSION: 1. Lobulated septated cystic mass centered in the thecal sac at the L5-S1 leve l measures 2.1 x 1.4 cm. Favor this is probably a schwannoma. Does not appear t o be contiguous with the facet joints to suggest facet cyst. Recommend follow-u p MRI with contrast of the lumbar spine to evaluate for enhancement. 2. Mild foraminal narrowing at L2-3 and on the RIGHT of L3-4. 3. Mild disc encroachment upon the subarticular recesses at L4-5. Minimal encr oachment upon the traversing L5 nerve roots. Mild RIGHT foraminal stenosis. 4. Central disc protrusion at L5-S1 contacts but does not displace the S1 nerv e roots. Mild foraminal narrowing at L5-S1. 5. Mild increase in the lumbar lordosis. 6. Grade 1 anterolisthesis of L4.
== END 2022-06-03 11:04 | disposition home or self-care (01) ==
PROVIDERS: PCP Family Medicine; Visit Provider Orthopaedic Surgery
DX: M51.27 Other intervertebral disc displacement, lumbosacral region (principal); M40.46 Postural lordosis, lumbar region
CPT/HCPCS: 72148

== ENCOUNTER → 2022-06-07 10:51 | Outpatient (BNVA) | payer MEDICARE, SELFPAY | PROVIDERS: PCP Family Medicine; Visit Provider Orthopaedic Surgery | DX: M54.9 Dorsalgia, unspecified (principal) | CPT/HCPCS: 99214 ==

== ENCOUNTER → 2022-07-21 09:17 | Outpatient (BNVA) | payer MEDICARE, SELFPAY | PROVIDERS: PCP Family Medicine; Visit Provider Nurse Practitioner Family | DX: L81.4 Other melanin hyperpigmentation (principal); D22.5 Melanocytic nevi of trunk; L85.3 Xerosis cutis; L82.0 Inflamed seborrheic keratosis; I87.2 Venous insufficiency (chronic) (peripheral); L82.1 Other seborrheic keratosis; Z71.89 Other specified counseling; Z85.828 Personal history of other malignant neoplasm of skin; Z87.891 Personal history of nicotine dependence; Z85.820 Personal history of malignant melanoma of skin | CPT/HCPCS: 17110; 99214 ==

== ENCOUNTER → 2022-11-29 09:25 | Outpatient (BNVA) | payer MEDICARE, SELFPAY | PROVIDERS: PCP Family Medicine; Referring Provider Registered Nurse; Visit Provider Internal Medicine | DX: E04.2 Nontoxic multinodular goiter (principal); R13.10 Dysphagia, unspecified; E04.1 Nontoxic single thyroid nodule | CPT/HCPCS: 36415; 84439; 84443; 84480; 99204 ==

== ENCOUNTER 2022-12-12 08:05 | Outpatient (CLI) | payer MEDICARE, SELFPAY ==
--- NOTE | 2022-12-12 08:30 | FL_ITS ---
WS: [id number] Exam: FL barium swallow [id number] Date/Time of Exam: 12/12/2022 8:23 AM Reason For Exam: Fluoroscopy time: minutes # of spot films: Swallowing function at the level of the oropharynx was normal. No indication of esophageal stricture or mass. Signs of previous hiatal hernia repair which appears to be intact. Mild esophageal spasm. Mo derate extrinsic posterior displacement of the esophagus secondary to LEFT atrial enlargement. IMPRESSION: 1. Mild tertiary esophageal spasm but no sign of esophageal stricture or mass. 2. Signs of prior hiatal hernia repair which appears to be intact.
== END 2022-12-12 08:06 | disposition home or self-care (01) ==
LOC: RAD 08:06
PROVIDERS: PCP Family Medicine; Visit Provider Internal Medicine
DX: R13.10 Dysphagia, unspecified (principal); E04.2 Nontoxic multinodular goiter; K22.4 Dyskinesia of esophagus
CPT/HCPCS: 74220

== ENCOUNTER 2023-01-20 13:44 | Emergency (ER) | payer MEDICARE, SELFPAY ==
[2023-01-20 13:53] VITALS: BP 176/101; PULSE 59; RESP 17; TEMP 36.7; O2SAT 94; BMI 30.1
--- NOTE | 2023-01-20 14:04 | ECG_ITS ---
[facility] Test Date: 2023-01-20 Pat Name: Gina Azul Department: Room: Gender: Female Prior Authorization Nurse: : 1940 Requested By: Wesley Jo Order Number: [id number] Longo MD: Magdalena Calero M.D. Measurements Intervals [place] Rate: 57 P: 33 AR: 150 QRS: -15 QRSD: 85 T: -1 QT: 441 QTc: 431 Interpretive Statements SINUS BRADYCARDIA POSSIBLE LEFT ATRIAL ENLARGEMENT [-0.1mV P-WAVE IN V1/V2] POSSIBLE RIGHT VENTRICULAR CONDUCTION DELAY [RSR (QR) IN V1/V2] POSSIBLE LEFT VENTRICULAR HYPERTROPHY [VOLTAGE CRITERIA PLUS LAE OR QRS WIDENING] No previous ECG available for comparison Electronically Signed On 01-21-2023 6:01:34 BAND MASTER by Magdalena Calero M.D. [id number]
--- NOTE | 2023-01-20 14:37 | XRR_ITS ---
PROCEDURE INFORMATION: Exam: XR Chest Exam date and time: 01/20/2023 4:24 PM Age: 82 years old Clinical indication: Pain; Angina pectoris; Additional info: Chest pain TECHNIQUE: Imaging protocol: Radiologic exam of the chest. Views: 1 view. COMPARISON: CT chest con [id number] 05/27/2021 1:04 PM FINDINGS: Tubes, catheters and devices: Reflux management device at the GE junction. Lungs: Stable atelectasis or fibrosis in the right upper lobe and medial left lung base. The lungs are otherwise clear. No consolidation. Pleural spaces: Unremarkable. No pleural effusion. No pneumothorax. Heart/Mediastinum: Unremarkable. No cardiomegaly. Bones/joints: Unremarkable. XR/XR chest 1V portable [id number] IMPRESSION: No acute findings.
[2023-01-20 15:29] LABS: Basophils # 0.1 10^3/uL (0.0-0.1); Basophils % 1.3 %; Eosinophils # 0.4 10^3/uL (0.0-0.8); Eosinophils % 4.6 %; Hematocrit 42.3 % (36-47); Lymphocytes # 2.3 10^3/uL (0.8-4.8); Lymphocytes % 25.3 %; Mean Corpuscular HGB Conc 32.4 g/dL (30-55); Mean Corpuscular Volume 92.6 fl (85-98); Mean Platelet Volume 10.3 fL (7.4-10.4); Monocytes # 0.8 10^3/uL (0.2-0.9); Monocytes % 9.1 %; Neutrophils # 5.35 10^3/uL (1.8-7.7); Neutrophils % 59.3 %; Nucleated Red Blood Cells % 0 %; Platelet Count 272 10^3/cmm (157-399); Red Blood Count 4.57 10^6/uL (3.85-5.65); Red Cell Distribution Width 14.7 % (12.1-15.1); White Blood Count 9.04 10^3/uL (3.29-11.43)
[2023-01-20 15:46] LABS: Troponin(5th) Baseline 10 ng/L (0-10)
[2023-01-20 15:57] VITALS: BP 198/97; PULSE 57; RESP 18; O2SAT 97
[2023-01-20 15:57] LABS: Alanine Aminotransferase 13 U/L (0-33); Albumin Level 4.2 g/dL (3.5-5.2); Alkaline Phosphatase 58 U/L (35-105); Blood Urea Nitrogen 19 mg/dL (8-23); Calcium 9.7 mg/dL (8.5-10.5); Carbon Dioxide 29 mmol/L (22-29); Chloride 104 mmol/L (98-107); Creatinine Clr Calc Pharmacy 36.7651; Globulin 2.1 g/dL (1.3-4.6); Glucose 159 mg/dL (65-115); Osmolality Calculated 300 mOsm/kg (285-295); Sodium 142 mmol/L (136-145); Total Bilirubin 0.5 mg/dL (0.15-1.2); Total Protein 6.3 g/dL (6.6-8.7)
[2023-01-20 15:58] LABS: Anion Gap 13.6 (5-19); Aspartate Amino Transferase 17 U/L (0-32); Potassium 4.6 mmol/L (3.5-5.1)
--- NOTE | 2023-01-20 16:27 | W.ED.CHESTPA ---
HPI - Chest Pain General: Chief Complaint: Chest Pain Stated Complaint: chest pain Time Seen by Provider: 01/20/23 15:42 Source: patient Mode of arrival: ambulatory History of Present Illness: 82-year-old female presents emergency room with epigastric pain radiating up into her chest and says been going on intermittently for several days. No radiation of the neck back or arms. No associated diaphoresis or dyspnea. She has not noticed anything exacerbates or relieves it. She does have a history of atrial fibrillation she did not notice any rapid heart rates recently. MD complaint: chest pain Onset (ago): day(s) (3) Pain radiation: none Quality: aching Relieving factors: nothing Exacerbating factors: nothing Associated symptoms: Deny abdominal pain, diaphoresis, dyspnea, fever(s), leg edema, nausea, palpitations, sense of impending doom, syncope or vomiting Review of Systems Const: Denies: fever(s), chills or diaphoresis Card: Denies: chest pain, palpitations or syncope Resp: Denies: dyspnea GI: Denies: abdominal pain, nausea or vomiting : Denies: dysuria, urinary frequency or urinary urgency Musc: Denies: neck pain or back pain Skin/Breast: Denies: rash PFSH ED PFSH: Medical History H/O fall 12/01/2020 Malignant neoplasm Basal cell carcinoma Bunion of right foot Asthma HTN (hypertension) with goal to be determined Surgical History History of left knee replacement Social History Smoking and tobacco/nicotine status: former use of tobacco/nicotine Quit status (tobacco/nicotine): has quit using Year quit tobacco: 1979 Former quit date comment: 1.5 ppd X 18 years Physical Exam Const: COMMON NORMALS: no acute distress GENERAL APPEARANCE: cooperative and comfortable ORIENTATION/CONSCIOUSNESS: Yes awake, Yes oriented to person, Yes oriented to place and Yes oriented to time HENMT: COMMON NORMALS: normocephalic, atraumatic and hearing grossly normal bilaterally HEAD & SCALP: normocephalic and atraumatic Resp: COMMON NORMALS: normal respiratory effort, No retractions, No use of accessory muscles and clear to auscultation bilaterally AUSCULTATION: clear to auscultation bilaterally Cardio: COMMON NORMALS: regular rate, regular rhythm and No murmurs present (Cardio) RATE: regular rate RHYTHM: regular rhythm GI: COMMON NORMALS: Soft to palpation and No hepatosplenomegaly present AUSCULTATION: Yes normoactive bowel sounds PALPATION: Yes Soft to palpation, No Tenderness to palpation present (GI), No Guarding due to palpation present (GI) and Yes No hepatosplenomegaly present Extremity: COMMON NORMALS: normal to inspection, capillary refill normal, no clubbing, cyanosis or edema, no calf tenderness and no pedal edema Neuro: SENSORIUM/ORIENTATION: Yes oriented to person, Yes oriented to place and Yes oriented to time Skin: COMMON NORMALS: no rashes or lesions noted GENERAL SKIN EXAM: no rashes or lesions noted Course Vital Signs: Vital signs: Vital Signs Temperature 98.1 F 01/20/23 13:53 Pulse Rate 55 L 01/20/23 18:58 Respiratory Rate 18 01/20/23 18:58 Blood Pressure 186/90 01/20/23 18:58 Pulse Oximetry 83 L 01/20/23 18:58 Oxygen Delivery Me thod Room Air 01/20/23 16:53 MDM - Chest Pain Medical Decision Making Labs and imaging reviewed EKG shows no acute changes troponins trending normal. Discussed with the patient she preferred to go home we will discharge her home adjustments made for blood pressure follow-up with primary care within the week. Medical Records I reviewed the patient's medical records. Lab Data I reviewed the patient's lab results. 01/20/23 15:08 01/20/23 15:08 Radiology Impressions Chest X-Ray 01/20/23 14:37 IMPRESSION: No acute findings. Laboratory Results WBC 9.04 10^3/uL (3.29-11.43) 01/20/23 15:08 RBC 4.57 10^6/uL (3.85-5.65) 01/20/23 15:08 Hgb 13.70 g/dL (11.27-16.99) 01/20/23 15:08 Hct 42.3 % (36-47) 01/20/23 15:08 MCV 92.6 fl (85-98) 01/20/23 15:08 MCH 30.0 pg (27-33) 01/20/23 15:08 MCHC 32.4 g/dL (30-55) 01/20/23 15:08 RDW 14.7 % (12.1-15.1) 01/20/23 15:08 Plt Count 272 10^3/cmm (157-399) 01/20/23 15:08 MPV 10.3 fL (7.4-10.4) 01/20/23 15:08 Neut % (Auto) 59.3 % 01/20/23 15:08 Lymph % (Auto) 25.3 % 01/20/23 15:08 [place] % (Auto) 9.1 % 01/20/23 15:08 Eos % (Auto) 4.6 % 01/20/23 15:08 Baso % (Auto) 1.3 % 01/20/23 15:08 Neut # (Auto) 5.35 10^3/uL (1.8-7.7) 01/20/23 15:08 Lymph # (Auto) 2.3 10^3/uL (0.8-4.8) 01/20/23 15:08 [place] # (Auto) 0.8 10^3/uL (0.2-0.9) 01/20/23 15:08 Eos # (Auto) 0.4 10^3/uL (0.0-0.8) 01/20/23 15:08 Baso # (Auto) 0.1 10^3/uL (0.0-0.1) 01/20/23 15:08 Nucleated RBC % (auto) 0 % 01/20/23 15:08 Nucleated RBCs # 0.0 /100WBC 01/20/23 15:08 Sodium 142 mmol/L (136-145) 01/20/23 15:08 Potassium 4.6 mmol/L (3.5-5.1) 01/20/23 15:08 Chloride 104 mmol/L (98-107) 01/20/23 15:08 Carbon Dioxide 29 mmol/L (22-29) 01/20/23 15:08 Anion Gap 13.6 (5-19) 01/20/23 15:08 BUN 19 mg/dL (8-23) 01/20/23 15:08 Creatinine 1.2 mg/dL (0.5-0.9) H 01/20/23 15:08 GFR Calculation Not Reportable 01/20/23 15:08 Glucose 159 mg/dL (65-115) H 01/20/23 15:08 Calculated Osmolality 300 mOsm/kg (285-295) H 01/20/23 15:08 Calcium 9.7 mg/dL (8.5-10.5) 01/20/23 15:08 Total Bilirubin 0.5 mg/dL (0.15-1.2) 01/20/23 15:08 AST 17 U/L (0-32) 01/20/23 15:08 ALT 13 U/L (0-33) 01/20/23 15:08 Alkaline Phosphatase 58 U/L (35-105) 01/20/23 15:08 Troponin T Baseline 10 ng/L (0-10) 01/20/23 15:08 Troponin T 120 Minute 10.30 ng/L (0-10) H 01/20/23 17:20 Delta Troponin T 0.30 ABS# (0-10) 01/20/23 17:20 Total Protein 6.3 g/dL (6.6-8.7) L 01/20/23 15:08 Albumin 4.2 g/dL (3.5-5.2) 01/20/23 15:08 Globulin 2.1 g/dL (1.3-4.6) 01/20/23 15:08 All radiology interpretation(s) finalized by discharge Discharge Plan Discharge Patient Disposition: Home Clinical Impression: Atypical chest pain, HTN (hypertension) with goal to be determined Condition: Stable Prescriptions: New Protonix 40 mg tablet,delayed release (DR/EC) 40 mg PO BID Qty: 60 0RF Rx Instructions: Twice daily x14 days then daily aspirin 81 mg tablet,delayed release (DR/EC) 81 mg PO DAILY Qty: 30 0RF No Action clonidine HCl 0.1 mg tablet 0.1 mg PO BID Qty: 60 3RF PreserVision AREDS-2 [id number] ob-xgvl-dn-mg Capsule 1 tab PO BID Mariah Allergy 180 mg Tablet 180 mg PO BEDTIME amlodipine 5 mg tablet 5 mg PO QAM cholecalciferol (vitamin D3) 125 mcg (5,000 unit) capsule 5,000 unit PO QAM Move Free Joint Health 750 mg-100 mg- 1.65 mg-108 mg Tablet 1 tab PO QAM Balance Of Nature Fruits 3 tab PO DAILY Balance Of Nature Veggies 3 tab PO DAILY metoprolol succinate 50 mg tablet extended release 24 hr 50 mg PO BEDTIME gabapentin 300 mg capsule 600 mg PO BID Advair Diskus 100-50 mcg/dose blister with device 2 inh inhalation BID albuterol sulfate 90 mcg/actuation HFA aerosol inhaler 2 puff inhalation Q4H PRN (Reason: shortness of breath or wheezing) diazepam 5 mg tablet 2.5 - 5 mg PO BEDTIME PRN (Reason: Sleep) Discharge Orders: Discharge ED (Routine); Ordered 01/20/23 Ordered By: Earl Flower Referrals: Steve Gee [Primary Care Provider] - Discharge Diet: Usual diet Discharge Activity: Increase activity as tolerated Patient Instructions: Opioid Safety, Pain Management Activity Restrictions/Additional Instructions: Thank you for choosing [facility] [place] for your healthcare needs today. Please realize this is an emergency room and that we are providing you with a medical screening exam and this may not be complete and all inclusive of all the testing and or work up that you may need to determine your ailment or severity of your illness. It is very important that you follow up as instructed or that you return to the Emergency Department should you have concerns or if your condition changes or worsens in any way. You are seen today for episode of chest discomfort your cardiac enzymes and EKGs were normal and did not show any acute changes. Recommend that you start Protonix 40 mg twice daily for 14 days then once daily. Also recommend baby aspirin daily Case management will set you up for an outpatient Lexiscan sestamibi stress test after this follow-up with your primary care doctor. Return if you have further problems. Coding Level of Care Code ED Supervisor Home Economics for Gilberto Rivera
--- NOTE | 2023-01-20 16:37 | ECG_ITS ---
[facility] Test Date: 2023-01-20 Pat Name: Gina Azul Department: Room: Gender: Female Supervisor Waterworks: : 1940 Requested By: Wesley Jo Order Number: [id number] Donta MD: Magdalena Calero M.D. Measurements Intervals [place] Rate: 55 P: 56 NV: 154 QRS: -9 QRSD: 89 T: 30 QT: 441 QTc: 423 Interpretive Statements SINUS BRADYCARDIA POSSIBLE RIGHT VENTRICULAR CONDUCTION DELAY [RSR (QR) IN V1/V2] MINIMAL VOLTAGE CRITERIA FOR LVH, CONSIDER NORMAL VARIANT [MEETS CRITERIA IN ONE OF: R(aVL), S(V1), R(V5), R(V5/V6)+S(V1)] No previous ECG available for comparison Electronically Signed On 01-21-2023 6:10:00 CHOP SAW OPERATOR by Magdalena Calero M.D. [id number]
[2023-01-20 16:53] VITALS: BP 175/90; PULSE 51; RESP 18; O2SAT 95
[2023-01-20 18:58] VITALS: BP 186/90; PULSE 55; RESP 18; O2SAT 83
== END 2023-01-20 18:56 | disposition home or self-care (01) ==
PROVIDERS: Emergency Medicine; Emergency Provider Family Medicine; PCP Family Medicine
DX: R07.89 Other chest pain (principal); I10 Essential (primary) hypertension; Z87.891 Personal history of nicotine dependence
CPT/HCPCS: 36415; 71045; 80053; 84484; 85025; 93005; 99285

== ENCOUNTER 2023-05-15 08:52 | Outpatient (CLI) | payer MEDICARE, SELFPAY ==
--- NOTE | 2023-05-15 10:00 | US_ITS ---
WS: [id number] ULTRASOUND THYROID FNA CLINICAL INFORMATION: thyroid nodule TECHNIQUE: Ultrasound-guided FNA FINDINGS: The procedure including risks, benefits, and complications were discussed with the patient who agreed to proceed. Timeout was performed. Using sterile technique patient was prepped and draped in usual sterile fashion. After 1% lidocaine, using ultrasound guidance, a 25-gauge needle was advanc ed into the complex RIGHT thyroid nodule. 5 passes were made with active aspiration. Pathology was pr esent for slide preparation. No immediate complications. Patient remained in the ultrasound suite 10 minutes postprocedure with intermittent ultrasound to ens ure no hematoma. No hematoma 10 minutes postprocedure. IMPRESSION: Uncomplicated ultrasound-guided thyroid FNA
== END 2023-05-15 08:53 | disposition home or self-care (01) ==
LOC: RAD 08:52
PROVIDERS: PCP Family Medicine; Visit Provider Internal Medicine
DX: E04.2 Nontoxic multinodular goiter (principal)
CPT/HCPCS: 10005; 88173

== ENCOUNTER 2023-05-30 11:31 | Emergency (ER) | payer MEDICARE, SELFPAY ==
--- NOTE | 2023-05-30 11:33 | ECG_ITS ---
[facility] Test Date: 2023-05-30 Pat Name: Gina Azul Department: Room: Gender: Female Cloud Administrator: : 1940 Requested By: Juve Jonas Order Number: [id number] Donta MD: Rina Sidhu M.D. Measurements Intervals [place] Rate: 62 P: 53 DC: 147 QRS: 0 QRSD: 87 T: 21 QT: 432 QTc: 441 Interpretive Statements SINUS RHYTHM VOLTAGE CRITERIA FOR LVH [MEETS CRITERIA IN ONE OF: R(aVL), S(V1), R(V5), R(V5/V6)+S(V1)] Compared to ECG 01/20/2023 17:03:21 Sinus bradycardia no longer present Electronically Signed On 05-30-2023 21:20:52 CDT by Rina Sidhu M.D. [id number]
[2023-05-30 11:37] VITALS: BP 216/104; PULSE 72; RESP 16; TEMP 36.4; O2SAT 95
--- NOTE | 2023-05-30 11:50 | ED_ITS ---
HPI - General Adult General: Chief complaint: General Medical Stated complaint: dr trevizo sent, high bp Time Seen by Provider: 05/30/23 11:45 Source: patient Mode of arrival: ambulatory Limitations: no limitations History of Present Illness: 83-year-old female who was at her endocr inologist appointment this morning states she forgot to take her clonidine or Norvasc this morning blood pressure was hypertensive there and was sent here due to that. She has no medical complaints she denies any pain able states she feels at her baseline. Associated symptoms: Deny chest pain, dyspnea, headache(s), nausea, rash or vomiting Review of Systems Const: Denies: fever(s), chills, body aches or change in appetite ENMT: Denies: throat pain or dental pain Card: Denies: chest pain Resp: Denies: dyspnea GI: Denies: abdominal pain, nausea, vomiting or diarrhea Musc: Denies: neck pain or back pain Skin/Breast: Denies: rash Neuro: Denies: headache(s) PFSH ED PFSH: Medical History H/O fall 12/01/2020 Malignant neoplasm Basal cell carcinoma Bunion of right foot Asthma HTN (hypertension) with goal to be determined Surgical History History of left knee replacement Social History Smoking and tobacco/nicotine status: former use of tobacco/nicotine Quit status (tobacco/nicotine): has quit using Year quit tobacco: 1979 Former quit date comment: 1.5 ppd X 18 years Physical Exam Const: COMMON NORMALS: no acute distress, patient oriented x3 and healthy appearing HENMT: COMMON NORMALS: normocephalic and atraumatic HEAD & SCALP: normocephalic and atraumatic Eye: COMMON NORMALS: Equal, round and reactive pupils present and EOMs intact bilaterally PUPIL: Yes Equal, round and reactive pupils present Neck/C-Spine: COMMON NORMALS: full ROM and supple Chest: COMMONS NORMALS: normal inspection of the chest and normal palpation of entire chest wall Resp: COMMON NORMALS: normal respiratory effort, No retractions, No use of accessory muscles and clear to auscultation bilaterally AUSCULTATION: clear to auscultation bilaterally Cardio: COMMON NORMALS: regular rate, regular rhythm and No murmurs present (Cardio) RATE: regular rate RHYTHM: regular rhythm GI: COMMON NORMALS: Normal to inspection, nondistended, normoactive bowel sounds present, Soft to palpation, non-tender and no masses PALPATION: Yes Soft to palpation Extremity: COMMON NORMALS: normal to inspection and full ROM Neuro: COMMON NORMALS: patient oriented x3, moves all extremities and no focal motor deficits Psych: COMMON NORMALS: mental status grossly normal, Normal thought process present and cooperative THOUGHT PROCESS: Normal thought process present Skin: COMMON NORMALS: no rashes or lesions noted and no wounds GENERAL SKIN EXAM: no rashes or lesions noted Course Vital Signs: Vital signs: Vital Signs Temperature 97.6 F 05/30/23 11:37 Pulse Rate 78 05/30/23 13:27 Respiratory Rate 16 05/30/23 11:37 Blood Pressure 180/98 05/30/23 13:27 Pulse Oximetry 92 05/30/23 13:27 Oxygen Delivery Me thod Room Air 05/30/23 13:27 MDM - General Adult Medical Decision Making Patient presents here with hypertension she is hypertensive because she did not take her meds this morning she has no complaints this time she is well-appearing here she stable for discharge follow-up with PCP return if worsening she understands agrees plan Medical Records I reviewed the patient's medical records. Lab Data I reviewed the patient's lab results. All radiology interpretation(s) finalized by discharge EKG Data EKG 1: I personally reviewed and interpreted this EKG as follows: EKG interpretation date: 05/30/23 EKG interpretation time: 11:55 Interpretation: nsr [id number] no st or t wave abnormalities qrs 87 qtc 438 Discharge Plan Discharge Patient Disposition: Home Clinical Impression: Hypertension Qualifiers: Hypertension type: unspecified Qualified Code(s): I10 - Essential (primary) hypertension Condition: Stable Prescriptions: No Action clonidine HCl 0.1 mg tablet 0.1 mg PO BID Qty: 60 3RF PreserVision AREDS-2 [id number] Capsule 1 tab PO BID valacyclovir 1 gram tablet 1,000 mg PO DAILY estradiol 0.01 % (0.1 mg/gram) cream See Rx Instructions .ROUTE .COMPLEX Rx Instructions: vaginally as directed (not started as of 05/30/23) moxifloxacin 0.5 % drops See Rx Instructions .ROUTE .COMPLEX Rx Instructions: as directed bid Eysuvis 0.25 % drops,suspension See Rx Instructions .ROUTE .COMPLEX Rx Instructions: as directed qid pantoprazole [Protonix] 40 mg tablet,delayed release (DR/EC) 40 mg PO DAILY Advair HFA 115-21 mcg/actuation HFA aerosol inhaler 2 puff INHALATION BID Neuriva Plus Brain Performance 1.7 mg-400 mcg- 2.4 mcg capsule 1 cap PO QAM fexofenadine [Mariah Allergy] 180 mg Tablet 180 mg PO BEDTIME amlodipine 5 mg tablet 5 mg PO QAM cholecalciferol (vitamin D3) 125 mcg (5,000 unit) capsule 5,000 unit PO QAM Balance Of Nature Fruits 3 tab PO DAILY Balance Of Nature Veggies 3 tab PO DAILY metoprolol succinate 50 mg tablet extended release 24 hr 50 mg PO BEDTIME gabapentin 300 mg capsule 600 mg PO BID albuterol sulfate 90 mcg/actuation HFA aerosol inhaler 2 puff inhalation Q4H PRN (Reason: shortness of breath or wheezing) diazepam 5 mg tablet 2.5 - 5 mg PO BEDTIME PRN (Reason: Sleep) aspirin 81 mg tablet,delayed release (DR/EC) 81 mg PO DAILY Qty: 30 0RF Rx Instructions: on hold 05/30/23 Discharge Orders: Discharge ED (Routine); Ordered 05/30/23 Ordered By: Juve Jonas Referrals: Steve Gee [Primary Care Provider] - 4-7 days Discharge Diet: Advance as tolerated Discharge Activity: Resume usual activity Patient Instructions: Hypertension (ED) Coding Level of Care Code ED Content Administrator for Gilberto Rivera
[2023-05-30 12:08] VITALS: BP 196/130
[2023-05-30] MEDS: cloNIDine 0.1 mg Tablet 0.100000000000000006 MG PO (12:08)
[2023-05-30] MEDS: amlodipine 5 mg Tablet PO (12:08)
[2023-05-30 12:10] VITALS: PULSE 71; O2SAT 91
[2023-05-30] MEDS: hyDRALAzine 20 mg/mL INJ 1 mL 10 MG IM (12:49)
[2023-05-30 13:27] VITALS: BP 180/98; PULSE 78; O2SAT 92
[2023-05-30 13:34] VITALS: BP 180/98; PULSE 69; O2SAT 92
== END 2023-05-30 13:35 | disposition home or self-care (01) ==
PROVIDERS: Emergency Provider Emergency Medicine; PCP Family Medicine
DX: E04.2 Nontoxic multinodular goiter (principal); R13.10 Dysphagia, unspecified; E04.1 Nontoxic single thyroid nodule; I10 Essential (primary) hypertension; Z79.82 Long term (current) use of aspirin; Z87.891 Personal history of nicotine dependence
CPT/HCPCS: 93005; 96372; 99215; 99284; J0360

== ENCOUNTER → 2023-06-09 10:53 | Outpatient (BNVA) | payer MEDICARE, SELFPAY | PROVIDERS: PCP Family Medicine; Visit Provider Otolaryngology | DX: E04.2 Nontoxic multinodular goiter; R13.14 Dysphagia, pharyngoesophageal phase | CPT/HCPCS: 31575; 99204 ==